=== PATIENT | male | born 1980 | race Caucasian/White ===

== ENCOUNTER 2023-09-12 11:17 | Emergency (ER) | payer OTHER ==
[~2023-09-12] VITALS: Ht 172.7 cm; Wt 120.2 kg
[2023-09-12] MEDS ORDERED: ONDANSETRON 4 MG/2 ML VIAL ONE (12:06)
[2023-09-12] MEDS ORDERED: HYDROCODONE/APAP 5-325MG TABLET ONE (12:07)
[2023-09-12] MEDS: IV NORMAL SALINE 1000 ML BAG IV ONE (12:10)
[2023-09-12] MEDS: ONDANSETRON 4 MG/2 ML VIAL IV ONE (12:10)
[2023-09-12 12:12] LABS: BASOPHILS % (AUTO) 0.2 % (0.0-2.0); EOSINOPHILS % (AUTO) 0.2 % (0.0-7.0); HEMATOCRIT 44.5 % (36.7-47.1); HEMOGLOBIN 15.5 g/dL (12.5-16.3); LYMPHOCYTES # (AUTO) 0.9 K/uL (0.8-4.8); LYMPHOCYTES % (AUTO) 10.6 % (20.5-51.5); MEAN CORPUSCULAR HEMOGLOBIN 29.9 uug (23.8-33.4); MEAN CORPUSCULAR HGB CONC 35 g/dL (32.5-36.3); MEAN CORPUSCULAR VOLUME 85.9 fL (73.0-96.2); MONOCYTES # (AUTO) 0.3 K/uL (0.1-1.30); NEUTROPHILS # (AUTO) 7.4 K/uL (1.8-8.9); PLATELET COUNT (AUTO) 191 K/uL (152-348); RED BLOOD CELL COUNT(AUTO) 5.18 MIL/uL (4.06-5.63); RED CELL DISTRIBUTION WIDTH 13.4 % (12.1-16.2); WHITE BLOOD COUNT (AUTO) 8.5 K/uL (3.6-10.2)
[2023-09-12 12:14] LABS: DIFFERENTIAL COMMENT 1
[2023-09-12 12:27] LABS: CALCIUM 9.2 mg/dL (8.5-10.1); CARBON DIOXIDE 27 mmol/L (21-32); CHLORIDE 107 mmol/L (98-107); GLUCOSE 108 mg/dL (74-106); SODIUM SERUM 141 mmol/L (136-145); UREA NITROGEN, BLOOD 17 mg/dL (7-18)
[2023-09-12] MEDS ORDERED: IV NORMAL SALINE 250 ML IV ONE (12:33)
[2023-09-12] MEDS ORDERED: IOHEXOL 300MG/ML 100 ML INFUS..BTL ONE (12:33)
[2023-09-12] MEDS ORDERED: SWABABLE VALVE TRANSFER SET EA MC ONE (12:33)
[2023-09-12] MEDS: HYDROCODONE/APAP 5-325MG TABLET PO ONE (12:34)
[2023-09-12 12:36] LABS: ALANINE AMINOTRANSFERASE 50 U/L (16-63); ALBUMIN 3.8 g/dL (3.4-5.0); ALKALINE PHOSPHATASE 56 U/L (50-136); ASPARTATE AMINOTRANSFERASE 20 U/L (15-37); BILIRUBIN,DIRECT 0.2 mg/dL (0.0-0.2); BILIRUBIN,TOTAL 0.4 mg/dL (0.2-1.0); LIPASE 36 U/L (16-77); TOTAL PROTEIN, SERUM 6.9 g/dL (6.4-8.2)
[2023-09-12 12:58] LABS: *BILIRUBIN,URIN NEGATIVE (NEGATIVE); *BLOOD, URINE 2+ (NEGATIVE); *CLARITY,URINE CLEAR (CLEAR); *COLOR,URINE YELLOW (YELLOW); *KETONES,URINE NEGATIVE (NEGATIVE); *PROTEIN,URINE TRACE (NEGATIVE); *UROBILINOGEN,URINE 0.2 E.U./dl (NORMAL); LEUKOCYTE ESTERASE ,URINE NEGATIVE (NEGATIVE); NITRITE, URINE NEGATIVE (NEGATIVE); PH,URINE 7.5 (5.0-8.0); UGLUCOSE NEGATIVE (NEGATIVE)
[2023-09-12] MEDS ORDERED: IBUP-1955 PO (13:43)
[2023-09-12] MEDS ORDERED: ACET-2605 PO (13:43)
[2023-09-12] MEDS ORDERED: ONDA4TAB5 PO (13:43)
[2023-09-12 14:14] VITALS: BP 110/60; O2SAT 100
[2023-09-12 14:49] LABS: BACTERIA,URINE RARE /HPF (NONE SEEN); SQUAMOUS EPITHELIAL CELL,UR FEW /HPF (NONE SEEN); WBC,URINE 0-3 /HPF (0-3)
== END 2023-09-12 14:16 | disposition home or self-care (01) ==
LOC: ER 11:17
DX: R10.31 Right lower quadrant pain (principal); R10.84 Generalized abdominal pain; R11.10 Vomiting, unspecified; Z79.899 Other long term (current) drug therapy
CPT/HCPCS: 99285; 74177; 96374; 96361; 80076; 80048; 81001; 83690; 85025; 84484; 36415; 93005; 83605; J2405; Q9967; J7040; A4606; A4663